=== PATIENT | female | born 1965 | race African-American/Black ===

== ENCOUNTER 2017-05-07 20:10 | Emergency (ER) | payer OTHER ==
[2017-05-07 21:41] VITALS: BP 134/96
== END 2017-05-07 21:41 | disposition home or self-care (01) ==
LOC: ED 20:10
DX: Z86.19 Personal history of other infectious and parasitic diseases (principal); F11.23 Opioid dependence with withdrawal; Z88.5 Allergy status to narcotic agent; Z85.3 Personal history of malignant neoplasm of breast; Y92.89 Other specified places as the place of occurrence of the external cause; F32.1 Major depressive disorder, single episode, moderate
CPT/HCPCS: J1885

== ENCOUNTER 2017-06-06 03:17 | Emergency (ER) | payer OTHER ==
[~2017-06-06] VITALS: Ht 182.9 cm; Wt 82.5 kg
[2017-06-06 04:26] LABS: microscopic required? YES
[2017-06-06 04:27] LABS: urine erythrocyte 1+ (NEGATIVE)
[2017-06-06 04:49] LABS: BASOPHIL % 0.1 % (0-2)
[2017-06-06 04:50] LABS: PLATELET COUNT 92 x10^3mcL (130-400); RED CELL DISTRIBUTION WIDTH 16.9 % (11.5-14.5)
[2017-06-06 05:04] LABS: CHLORIDE SERUM 99 mmol/L (98-107); CREATININE SERUM 0.7 mg/dL (0.6-1.0); GFR1 > 60 mL/min; GLUCOSE SERUM 80 mg/dL (74-106); POTASSIUM SERUM 3.2 mmol/L (3.5-5.1); SODIUM SERUM 132 mmol/L (136-145)
[2017-06-06 05:07] LABS: ALKALINE PHOSPHATASE 63 U/L (46-116); ALT/SGPT 22 U/L (14-59); AST/SGOT 83 U/L (15-37); BILIRUBIN TOTAL 0.55 mg/dL (0.20-1.00); LIPASE 133 IU/L (73-393); TOTAL PROTEIN, SERUM 7.2 g/dL (6.4-8.2); TRIGLYCERIDES 92 mg/dL (<150)
[2017-06-06 05:08] LABS: ALBUMIN 1.9 g/dL (3.4-5.0); CHOLESTEROL 89 mg/dL (<200); CHOLESTEROL/HDL RATIO 5.2; HDL CHOLESTEROL 17 mg/dL (40-60)
[2017-06-06 05:11] LABS: T3 TOTAL 1.01 ng/mL
[2017-06-06 05:23] LABS: FREE T4 1.62 ng/dL (0.76-1.46); T4(THYROXINE) 13.3 ug/dL (4.7-13.3)
[2017-06-06 11:22] VITALS: BP 98/64
== END 2017-06-06 11:15 | disposition short-term general hospital (02) ==
LOC: ED 03:17
PROVIDERS: Specialist
DX: C79.81 Secondary malignant neoplasm of breast (principal); J90 Pleural effusion, not elsewhere classified
CPT/HCPCS: 36600; 83880; 84439; J1170; J1885; J2060; J2270; J2405; J7030; J7613; J7644; Q0092; Q0162